=== PATIENT | female | born 1975 | race Caucasian/White ===

== ENCOUNTER 2016-12-26 20:44 | Emergency (ER) | payer BC ==
[~2016-12-26] VITALS: Ht 162.6 cm; Wt 82.0 kg
[~2016-12-26 20:44] MED LIST: EFFSR75 PO
[2016-12-26 20:56] VITALS: TEMP 36.8; Ht 162.6 cm; Wt 82.0 kg
[2016-12-26] MEDS ORDERED: VITA10006 PO (21:20)
[2016-12-26] MEDS ORDERED: VENL150C56 PO (21:20)
[2016-12-26] MEDS ORDERED: CHOL2000 PO (21:20)
[2016-12-26] MEDS ORDERED: LEVO125T4 PO (21:20)
[2016-12-26] MEDS ORDERED: CYAN100048 PO (21:20)
[2016-12-26] MEDS ORDERED: INTE1KIT3 INJ (21:20)
[2016-12-26] MEDS ORDERED: IBUPROFEN 600 MG TAB PO STA (21:26)
--- NOTE | 2016-12-26 22:11 | DIAGNOSTIC IMAGING REPORT ---
L ANKLE MIN 3 VIEWS ROUTINE CLINICAL HISTORY: Left ankle pain status post trauma COMPARISON: None. DISCUSSION: There is a nondisplaced transverse fracture involving the lateral malleolus. There is no ankle mortise disruption on these nonstress views. No tibial fractures are visualized. IMPRESSION: Nondisplaced distal fibular fracture Electronically signed by: Noah Trent M.D. 12/26/2016 10:10 PM Dictated Date/Time: 12/26/2016 10:09 PM
[2016-12-26] MEDS ORDERED: NORCO 5/325MG HOME PACK PO ONE (22:30)
[2016-12-26] MEDS ORDERED: HYDR-5688 PO (22:48)
[2016-12-26 22:55] VITALS: BP 187/115; PULSE 93; O2SAT 98
--- NOTE | 2016-12-27 02:21 | EMERGENCY ROOM VISIT NOTE ---
ED Visit Note First contact with patient: 21:17 Chief Complaint: I think I broke my left ankle. History of Present Illness: Ms. Kaplan is a 41-year-old white female who is brought into the ED via wheelchair accompanied by 2 daughters and a male friend complaining of left lateral ankle pain. Patient reports approximately 1.5-2 hours ago she stepped off her back stoop and tripped over a root injuring her left ankle. She describes an inversion injury to the ankle. Since the injury she reports she has had moderate pain over the lateral ankle. Currently she places the majority of her discomfort directly over the distal fibula. She describes her pain as a sharp and throbbing sensation. She rates her discomfort 6/10. Her pain is nonradiating. Her pain worsens with palpation of the distal fibula, plantar flexion, inversion and ambulation. She has not identified any alleviating factors related to the pain. She has not taken a medication for pain prior to arrival at the hospital. She does report she has moderate decreased sensation in the left foot due to her multiple sclerosis but does not feel that has worsened since her injury. She denies any associated hip pain, thigh pain, knee pain, lower leg pain, foot pain. She denies any previous significant injuries or surgeries to the ankle or foot. Review of Systems: As noted above in history of present illness. 5 body systems were reviewed and found to be negative as noted above. Past Medical History: Multiple sclerosis, hypothyroidism and status post LEEP procedure. Current Medications: Medications Dose Route/Sig Max Daily Dose Days Date Category Dose Instructions Vitamin A 10,000 Unit Cap 10,000 Inter.unit PO DAILY 12/26/16 Reported Vitamin B-12 (Cyanocobalamin) 1,000 Mcg Sub 2,000 Mcg PO DAILY 12/26/16 Reported Vitamin D3 (Cholecalciferol) 2,000 Unit Cap 2,000 Inter.unit PO DAILY 90 12/26/16 Reported Avonex (Interferon Beta-1A) 30 Mcg/Vial Kit 30 Mcg INJ WK 12/26/16 Reported Effexor Extended Rel (Venlafaxine Hcl) 150 Mg Cap 150 Mg PO DAILY 12/26/16 Reported Levothyroxine Sodium 125 Mcg Tab 62.5 Tab PO DAILY 12/26/16 Reported Allergies to Medications: Quinolones, Bactrim. Social History: Patient is currently employed; she feels safe in her home environment; she denies tobacco use and admits to alcohol use. Physical Examination: Vital Signs: Date Time Temp Pulse Resp B/P (MAP) Pulse Ox O2 Delivery O2 Flow Rate FiO2 12/26/16 22:55 93 14 187/115 98 12/26/16 20:56 36.8 108 20 188/115 96 Room Air GENERAL: 41-year-old female in mild to moderate distress due to pain, nontoxic- appearing, afebrile and hemodynamically stable. NEUROLOGICAL: Awake, alert and oriented to person, place and time. Answering questions appropriately and following commands. Good hand eye coordination. SKIN: Warm, dry and pink. No soft tissue trauma noted. LEFT LOWER EXTREMITY: No gross bony deformity. No shortening or malrotation. No tenderness over the hip, thigh, knee, proximal aspect of the lower leg or foot. There is moderate tenderness over the distal fibulas malleolus with moderate swelling. No palpable bony crepitus and there is no ecchymosis. Patient refused to do range of motion exercises due to pain. I did elicit pain with ankle distraction and inversion but did not appreciate any ligamentous laxity. No tenderness throughout the tarsals, metatarsals and toes. No tenderness over the Achilles tendon. Throughout the foot the skin was warm and pink. She was barely able to identify light sensations throughout her toes. ED Course: Patient is assessed as noted above. Patient's medication list was reviewed. Patient was given 600 mg of ibuprofen by mouth for pain and ice for pain and swelling. Left Ankle X-Rays: Were read by myself and the radiologist showing a nondisplaced fracture of the distal left fibula. Patient was placed in a left ankle stirrup splint of Ortho-Glass material and was instructed on nonweightbearing crutches. Patient was educated about today's findings and instructed on her treatment plan ; she verbalized understanding and agreement with this plan. Clinical Impression: Distal left fibula fracture. Decision-Making: Initially my differential diagnosis I considered fracture, sprain, tendon strain, contusion and other causes. Disposition: Patient discharged home in stable condition; prior to departure she was reassessed and subjectively reported she was feeling better and rated her discomfort 5/10. Plan: Comfort measures were discussed including rest, ice, elevation and a sliding pain medication scale of ibuprofen, acetaminophen and [place]; she was given appropriate narcotic precautions and her name was checked in the state database and no red flags were noted. Patient was encouraged to follow-up with [facility] for definitive care and treatment. Patient was encouraged return ED for worsening/uncontrolled pain, uncontrolled swelling, worsening numbness of the left ankle.
== END 2016-12-26 22:55 | disposition home or self-care (01) ==
LOC: C.EDB 20:45 → C.EDD 22:55
DX: S82.402A Unspecified fracture of shaft of left fibula, initial encounter for closed fracture (principal); W18.09XA Striking against other object with subsequent fall, initial encounter